=== PATIENT | female | born 1950 | race Caucasian/White ===

== ENCOUNTER 2018-01-16 07:33 | Emergency (ER) | payer MEDICARE, BC ==
--- NOTE | 2018-01-16 07:42 | EDM.PDOC ---
ED HPI GENERAL MEDICAL PROBLEM - General Chief Complaint: Skin Complaint Stated Complaint: HIVES Time Seen by Provider: 01/16/18 07:34 Source of Information: Reports: Patient History Limitations: Reports: No Limitations - History of Present Illness INITIAL COMMENTS - FREE TEXT/NARRATIVE: History of present illness: []Patient's had diffuse hives for the last 3 days intermittently and worse at night. This morning she woke up with affecting her eyelids and she feels a " lump in her throat". She is not having any difficulty breathing, swallowing or shortness of breath. Patient took one tablet Benadryl this morning with minimal improvement. Patient went to [facility] last week an MRI with contrast and did stay in a hotel overnight, however, she is not aware of any other possible causes. Review of systems: As per history of present illness and below otherwise all systems reviewed and negative. Past medical history: As per history of present illness and as reviewed below otherwise noncontributory. Surgical history: As per history of present illness and as reviewed below otherwise noncontributory. Social history: No reported history of drug or alcohol abuse. Family history: As per history of present illness and as reviewed below otherwise noncontributory. Physical exam: General: Well developed, well nourished in NAD HEENT: Atraumatic, normocephalic, upper eyelids with areas of raised erythematous patches, pupils reactive, negative for conjunctival pallor or scleral icterus, mucous membranes moist, throat clear, neck supple, nontender, trachea midline. No stridor Lungs: Clear to auscultation, breath sounds equal bilaterally, chest nontender. No wheezing or accessory muscle use Heart: S1S2, regular, negative for clicks, rubs, or JVD. Abdomen: Soft, nondistended, nontender. Negative for masses or hepatosplenomegaly. Negative for costovertebral tenderness. Pelvis: Stable nontender. Genitourinary: Deferred. Rectal: Deferred. Extremities: Atraumatic, negative for cords or calf pain. Neurovascular unremarkable. Neuro: Awake, alert, oriented. Cranial nerves II through XII unremarkable. Cerebellum unremarkable. Motor and sensory unremarkable throughout. Exam nonfocal. Skin: Diffuse hives mostly on thighs, arms and upper eyelids Diagnostics: [] Therapeutics: []Benadryl, Pepcid and prednisone given in the ED Impression: []Urticaria unknown etiology Plan: []Medrol Dosepak, Benadryl as directed Definitive disposition and diagnosis as appropriate pending reevaluation and review of above. Generalized Pain Score (Numeric/FACES): 2 - Related Data Allergies Allergy/AdvReac Type Severity Reaction Status Date / Time No Known Allergies Allergy Verified 01/16/18 07:44 Home Meds: Home Meds amLODIPine Besylate [Amlodipine Besylate] 1 tab PO DAILY 01/16/18 [History] methylPREDNISolone [Medrol] 4 mg PO ASDIRECTED #1 dosepk 01/16/18 [Rx] ED ROS GENERAL - Review of Systems Review Of Systems: See Below (See history of present illness) ED EXAM, SKIN/RASH Exam: See Below (See history of present illness) Course - Vital Signs Last Recorded V/S: Last Vital Signs Temp 96.8 F 01/16/18 07:47 Pulse 78 01/16/18 07:47 Resp 16 01/16/18 07:47 BP 151/69 H 01/16/18 07:47 Pulse Ox 99 01/16/18 07:47 - Orders/Labs/Meds Meds: Medications Discontinued Medications Generic Name Dose Route Start Last Admin Trade Name Freq PRN Reason Stop Dose Admin Diphenhydramine HCl 25 mg 01/16/18 07:54 Benadryl PO 01/16/18 07:55 ONETIME ONE Famotidine 20 mg 01/16/18 07:55 Pepcid PO 01/16/18 07:56 ONETIME ONE Prednisone 60 mg 01/16/18 07:55 Prednisone PO 01/16/18 07:56 ONETIME ONE Departure - Departure Time of Disposition: 08:02 Disposition: Home, Self-Care 01 Condition: Good Clinical Impression: Urticaria - Discharge Information Prescriptions: methylPREDNISolone [Medrol] 4 mg PO ASDIRECTED #1 dosepk Referrals: Trudy Kincaid PHOTOVOLTAIC FABRICATION TECHNICIAN [Primary Care Provider] - Forms: ED Department Discharge Additional Instructions: The following information is given to patients seen in the emergency department who are being discharged to home. This information is to outline your options for follow-up care. We provide all patients seen in our emergency department with a follow-up referral. The need for follow-up, as well as the timing and circumstances, are variable depending upon the specifics of your emergency department visit. If you don't have a primary care physician on staff, we will provide you with a referral. We always advise you to contact your personal physician following an emergency department visit to inform them of the circumstance of the visit and for follow-up with them and/or the need for any referrals to a consulting specialist. The emergency department will also refer you to a specialist when appropriate. This referral assures that you have the opportunity for follow-up care with a specialist. All of these measure are taken in an effort to provide you with optimal care, which includes your follow-up. Under all circumstances we always encourage you to contact your private physician who remains a resource for coordinating your care. When calling for follow-up care, please make the office aware that this follow-up is from your recent emergency room visit. If for any reason you are refused follow-up, please contact the [facility] Emergency Department at and asked to speak to the emergency department charge nurse. Medrol Dosepak as directed, Benadryl 1-2 tablets every 4 hours as needed for itching, you can also take Pepcid twice a day. [facility] Primary [facility] [place] [id number]
[2018-01-16] MEDS ORDERED: diphenhydrAMINE 25 MG Cap PO ONE (07:54)
[2018-01-16] MEDS ORDERED: predniSONE 20 MG Tab PO ONE (07:55)
[2018-01-16] MEDS ORDERED: Famotidine 20 MG Tab PO ONE (07:55)
[2018-01-16 08:19] VITALS: BP 145/86
== END 2018-01-16 08:18 | disposition home or self-care (01) ==
LOC: MW.ED 07:33
DX: L50.9 Urticaria, unspecified (principal)
CPT/HCPCS: 99282; A9270

== ENCOUNTER 2021-06-27 08:12 | Day surgery (SDC) | payer MEDICARE, BC ==
[~2021-06-27 08:12] MED LIST: Lactated Ringers 1,000 ML IV SCH
[2021-06-27] MEDS ORDERED: Propofol 200 MG/20 ML SDV ONE (08:50)
[2021-06-27] MEDS ORDERED: fentaNYL 100 MCG/2 ML SDV ONE (08:50)
--- NOTE | 2021-06-27 08:51 | PCM.PREANE ---
Preanesthetic Assessment - Procedure Proposed Procedure: Colonoscopy - Anesthesia/Transfusion/Family Hx Anesthesia History: Prior Anesthesia Without Reaction Other Type of Anesthesia Reaction Comment: Denies any known problems, notes mother's fmly hx: Malignant Hyperthermia Family History of Anesthesia Reaction: No Transfusion History: No Prior Transfusion(s) - Review of Systems General: No Symptoms Pulmonary: No Symptoms Cardiovascular: No Symptoms (HTN) Gastrointestinal: No Symptoms Neurological: No Symptoms Other: Reports: None - Physical Assessment NPO Status Date: 06/26/21 NPO Status Time: 18:30 Height: 5 ft 7 in Weight: 60.328 kg ASA Class: 2 Mental Status: Alert & Oriented x3 Airway Class: Mallampati = 2 Dentition: Reports: Normal Dentition Thyro-Mental Finger Breadths: 3 Mouth Opening Finger Breadths: 3 ROM/Head Extension: Full Lungs: Clear to Auscultation, Normal Respiratory Effort Cardiovascular: Regular Rate, Regular Rhythm - Allergies Allergies/Adverse Reactions: Allergies Allergy/AdvReac Type Severity Reaction Status Date / Time Gadolinium-Containing Allergy Hives Verified 06/23/21 14:07 Contrast Medi - Acknowledgements Anesthesia Type Planned: General Anesthesia Pt an Appropriate Candidate for the Planned Anesthesia: Yes Alternatives and Risks of Anesthesia Discussed w Pt/Guardian: Yes Pt/Guardian Understands and Agrees with Anesthesia Plan: Yes PreAnesthesia Questionnaire HEENT History: Reports: Other (See Below) Other HEENT History: wears glasses/contacts Cardiovascular History: Reports: Hypertension Respiratory History: Reports: Other (See Below) Other Respiratory History: chronic cough Gastrointestinal History: Reports: Other (See Below) Other Gastrointestinal History: 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 Genitourinary History: Reports: Renal Calculus [employer]LE[employer] History: Reports: None Musculoskeletal History: Reports: Arthritis, Gout Neurological History: Reports: Migraines Other Neuro History: no migraines for 30 years Psychiatric History: Reports: None Endocrine/Metabolic History: Reports: None Hematologic History: Reports: Other (See Below) Other Hematologic History: Margaret has a family hx of Malignant Hyperthermia on her mothers side- closest relative with a reaction is a second cousin Immunologic History: Reports: None Oncologic (Cancer) History: Reports: None Dermatologic History: Reports: None - Infectious Disease History Infectious Disease History: Reports: Measles, Mumps - Past Surgical History Head Surgeries/Procedures: Reports: None HEENT Surgical History: Reports: Tonsillectomy GI Surgical History: Reports: Colonoscopy Female Surgical History: Reports: Breast Biopsy, Hysterectomy, Lithotripsy/ESWL, Salpingo-Oophorectomy, Tubal Ligation Musculoskeletal Surgical History: Reports: None - SUBSTANCE USE Tobacco Use Status *Q: Never Tobacco User Recreational Drug Use History: No - HOME MEDS Home Medications: Home Meds amLODIPine Besylate [Amlodipine Besylate] 10 mg PO QAM 01/16/18 [History] - CURRENT (IN HOUSE) MEDS Current Meds: Current Medications Lactated Ringer's (Ringers, Lactated) 1,000 mls @ 125 mls/hr IV ASDIRECTED HARMAN
[2021-06-27] MEDS ORDERED: Lactated Ringers 1,000 ML IV SCH (10:00)
--- NOTE | 2021-06-27 10:00 | PCM.OPNOTE ---
- General Post-Op/Procedure Note Date of Surgery/Procedure: 06/27/21 Operative Procedure(s): Colonoscopy Pre Op Diagnosis: Change in bowel habits. Family history of colon cancer. Post-Op Diagnosis: Sigmoid diverticulosis Anesthesia Technique: MAC (ASA II) Primary Surgeon: Francois Norris Condition: Good Free Text/Narrative:: DICTATION [id number] CPT CODE 62933
--- NOTE | 2021-06-27 10:05 | PCM.POSTAN ---
POST ANESTHESIA ASSESSMENT - MENTAL STATUS Mental Status: Somnolent - VITAL SIGNS Vital Signs: Last Vital Signs Temp 97.9 F 06/27/21 08:40 Pulse 78 06/27/21 08:40 Resp 16 06/27/21 08:40 BP 126/88 06/27/21 08:40 Pulse Ox 98 06/27/21 08:40 - RESPIRATORY Respiratory Status: Respiratory Rate WNL, Airway Patent, O2 Saturation Stable - CARDIOVASCULAR CV Status: Pulse Rate WNL, Blood Pressure Stable - GASTROINTESTINAL GI Status: No Symptoms - PAIN Free Text/Narrative:: Resting comfortably - POST OP HYDRATION Hydration Status: Adequate & Stable
[2021-06-27 11:51] VITALS: BP 126/59; PULSE 67
--- NOTE | 2021-06-27 15:24 | OR ---
SURGEON: Francois Norris M.D. DATE OF PROCEDURE: 06/27/2021 OPERATION PERFORMED: Colonoscopy. PRIMARY SURGEON: Francois Norris M.D. ANESTHESIA: MAC. ASA CLASSIFICATION: II. PREOPERATIVE DIAGNOSES: 1. Change in bowel habits. 2. Family history of colon cancer. POSTOPERATIVE DIAGNOSIS: Sigmoid diverticulosis. DESCRIPTION OF PROCEDURE: The patient was taken to the endoscopy room and positioned on the endoscopy table in the left lateral decubitus position. Time-out was called for appropriate identification of patient and procedure. Monitored anesthesia care was provided. The colonoscope was inserted into the rectum and advanced without difficulty to the cecum. The cecum was identified by internal landmarks and external pressure. The colonoscope was retroflexed to visualize the ascending colon from below and then straightened and slowly withdrawn. The cecum, ascending colon, hepatic flexure, transverse colon, splenic flexure, and descending colon showed no tumors, polyps, diverticula, or angiodysplastic changes. The sigmoid colon demonstrated numerous diverticular changes. No stricture, spasm, or bleeding was noted. No polyps were encountered in the sigmoid colon. Once the colonoscope was withdrawn to the rectum, it was retroflexed to visualize the anal orifice from above. No tumors or polyps were seen and there were no acute hemorrhoidal changes. The colonoscope was then straightened, the rectum aspirated, and the colonoscope removed. Patient tolerated the procedure well and was taken to recovery room in stable condition. ZIYAD / DEBI /[id number]
== END 2021-06-27 10:40 | disposition home or self-care (01) ==
LOC: MW.SDS 08:12
PROVIDERS: ATTEND Surgery
DX: K57.30 Diverticulosis of large intestine without perforation or abscess without bleeding (principal); K21.9 Gastro-esophageal reflux disease without esophagitis; I10 Essential (primary) hypertension; N39.0 Urinary tract infection, site not specified; Z88.8 Allergy status to other drugs, medicaments and biological substances; Z80.0 Family history of malignant neoplasm of digestive organs; Z79.899 Other long term (current) drug therapy; G43.909 Migraine, unspecified, not intractable, without status migrainosus; Z98.890 Other specified postprocedural states
CPT/HCPCS: 45378; J2704; J3010; J7120; 00812

== ENCOUNTER 2023-04-19 20:22 | Emergency (ER) | payer MEDICARE, BC ==
[2023-04-19] MEDS ORDERED: Octyl 2-Cyanoacrylate 1 g/1 mL 1 APPLIC PEN TOP ONE (21:03)
[2023-04-19 21:59] VITALS: BP 154/92; PULSE 76
== END 2023-04-19 21:58 | disposition home or self-care (01) ==
LOC: MW.ED 20:22
DX: S00.31XA Abrasion of nose, initial encounter (principal); I10 Essential (primary) hypertension; Z91.041 Radiographic dye allergy status; W20.8XXA Other cause of strike by thrown, projected or falling object, initial encounter
CPT/HCPCS: 99283; A9270; 99282

== ENCOUNTER 2023-10-10 07:36 | Emergency (ER) | payer MEDICARE, BC ==
[2023-10-10] MEDS: Sodium Chloride 0.9% 1,000 ML IV ONE ×2 (07:58→09:13)
[2023-10-10] MEDS: Ondansetron 4 MG/2 ML SDV IVPUSH ONE (07:58)
[2023-10-10] MEDS: Ketorolac 30 MG/ML SDV IVPUSH ONE (07:59)
[2023-10-10 08:01] LABS: BASOPHILS ABSOLUTE AUTO 0.03 K/uL (0.00-0.20); BASOPHILS PERCENT AUTO 0.2 % (0.0-1.0); EOSINOPHILS ABSOLUTE AUTO 0.07 K/uL (0.00-0.45); EOSINOPHILS PERCENT AUTO 0.5 % (0.0-6.0); HEMATOCRIT 47.3 % (37.0-47.0); HEMOGLOBIN 15.9 g/dL (12.0-16.0); IMMATURE GRAN ABSOLUTE AUTO 0.14 K/uL (0.00-0.05); LYMPHOCYTES ABSOLUTE AUTO 2.03 K/uL (1.00-4.80); LYMPHOCYTES PERCENT AUTO 14.8 % (24.0-44.0); MEAN CORPUSCULAR HEMOGLOBIN 30.9 pg (28.0-32.0); MEAN CORPUSCULAR HGB CONC 33.6 g/dL (32.0-36.0); MEAN PLATELET VOLUME 10.8 fL (9.4-12.3); MONOCYTES ABSOLUTE AUTO 0.99 K/uL (0.00-0.80); MONOCYTES PERCENT AUTO 7.2 % (0.0-8.0); NEUTROPHILS ABSOLUTE AUTO 10.48 K/uL (1.80-7.70); NEUTROPHILS PERCENT AUTO 76.3 % (41.0-71.0); PLATELET COUNT,PLT 223 K/uL (150-400); RED BLOOD CELL COUNT 5.14 M/uL (4.10-5.30); WHITE BLOOD CELL COUNT,WBC 13.74 K/uL (3.9-11.3)
[2023-10-10 08:13] LABS: A/G RATIO 1.4 (0.9-1.6); ALBUMIN 4.3 g/dL (3.4-5.0); BILIRUBIN TOTAL 0.6 mg/dL (0.2-1.0); CALCIUM 10.4 mg/dL (8.5-10.1); CARBON DIOXIDE,CO2 24.6 mmol/L (21.0-32.0); CREATININE 0.9 mg/dL (0.6-1.0); EST CRCL DRUG DOSING (CG) 55.75 mL/min; MAGNESIUM 2.1 mg/dL (1.8-2.4); POTASSIUM,K 3.8 mmol/L (3.5-5.1); PROTEIN TOTAL,TP 7.3 g/dL (6.4-8.2)
[2023-10-10 08:33] LABS: D-DIMER QUANTITATIVE 0.34 mg/L FEU (0.00-0.50); INR 1.01 (0.86-1.11); PTT,PARTIAL THROMBOPLSTIN TIME 27.9 SEC (23.9-30.7)
[2023-10-10] MEDS: Iopamidol 755 Mg/ML 100 ML Bottle IVPUSH STA (09:12)
[2023-10-10 09:56] LABS: APPEARANCE,URINE CLEAR; BILIRUBIN,URINE NEGATIVE (NEGATIVE); GLUCOSE,URINE NEGATIVE (NEGATIVE); KETONES,URINE NEGATIVE (NEGATIVE); LEUKOCYTE ESTERASE,URINE LARGE (NEGATIVE); NITRITE,URINE POSITIVE (NEGATIVE); OCCULT BLOOD,URINE NEGATIVE (NEGATIVE); PH,URINE 6.5 (5.0-8.0); PROTEIN,URINE NEGATIVE (NEGATIVE); UROBILINOGEN,URINE 0.2 EU/dL (<2.0)
[2023-10-10 10:19] LABS: COLOR,URINE STRAW
[2023-10-10] MEDS: Piperacillin/Tazobactam 3.375 GM in Sodium Chloride 0.9% 100 ML IV ONE (10:22)
[2023-10-10 10:26] LABS: BACTERIA,URINE 2+ (NEGATIVE); EPITHELIAL CELLS,URINE FEW (NONE-FEW); RBC,URINE 0-1 (0-2/HPF)
[2023-10-10 10:47] VITALS: BP 156/66; PULSE 84
== END 2023-10-10 10:46 | disposition home or self-care (01) ==
LOC: MW.ED 07:36
DX: K57.32 Diverticulitis of large intestine without perforation or abscess without bleeding (principal); R82.71 Bacteriuria; I10 Essential (primary) hypertension; Z79.899 Other long term (current) drug therapy; Z91.041 Radiographic dye allergy status
CPT/HCPCS: 36415; 71045; 71260; 74177; 80053; 81001; 83690; 83735; 84484; 85025; 85379; 85610; 85730; 93005; 96361; 96365; 96375; 99285; J1885; J2405; J2543; J3490; J7030; Q9967; 93010; 99284